=== PATIENT | female | born 1950 | race Two or more races ===

== ENCOUNTER 2024-06-13 22:22 | Inpatient (IN) | payer OTHER ==
[~2024-06-13] VITALS: Ht 152.4 cm; Wt 40.8 kg
--- NOTE | 2024-06-13 22:33 | NUR ---
SE RECIBE PACIENTE DE VILLAVICENCIO GURINDER LA MISMA ES TRANSFERIDA POR ANEMIA, AL MOMENTO DE TRIAGE PACIENTE ALERTA Y ORIENTADA EN TIEMPO, LUGAR Y PERSONA. PACIENTE REFIERE NO TENER DOLOR AL MOMENTO, SE OBSERVA PACIENTE PREVIAMENTE CANALIZADA DEL [facility] CON ANGIO #20, EL CUAL SE ENCUENTRA PATENTE, LAURA DE EDEMA Y ERITEMA, SE OBESRVA RECIBIENDO ZITHROMAX 500MG IV. SE MONITOREAN S/V Y SE UBICA PACIENTE.
[2024-06-13] MEDS ORDERED: FUROsemide 20 MG/2 ML VIAL IV SCH (23:08)
[2024-06-13] MEDS ORDERED: ACETAMINOPHEN 325 MG TABLET PO PRN (23:15)
[2024-06-14 04:29] LABS: MEAN CELL VOLUME 106.4 fL (80.00-100.00); MEAN CORPUSCULAR HGB CONC 34.6 g/dl (32.0-36.0); PLATELET COUNT 437 K/uL (150-450); RED BLOOD COUNT 1.81 M/uL (4.00-6.00); RED CELL DISTRIBUTION WIDTH 23.7 % (11.5-14.5)
[2024-06-14 04:34] LABS: BILIRUBIN TOTAL 0.8 mg/dL (0.3-1.2); CALCIUM 8.4 mg/dL (8.5-10.1); CREATININE SERUM 0.67 mg/dL (0.55-1.02); GFR 85.57; GLOBULINA 4.3 G/DL (2.4-3.5); TOTAL PROTEIN 6.3 gm/dL (6.4-8.2)
[2024-06-14 04:38] LABS: HEMOGLOBIN 6.7 g/dL (12.0-15.00)
[2024-06-14 04:39] LABS: HEMATOCRIT 19.2 % (36.0-45.00)
[2024-06-14 04:43] LABS: INR 1.15; PARTIAL THROMBOPLASTIN TIME 28.3 SECONDS (22.0-34.0); PROTHROMBIN TIME 12.4 SECONDS (9.0-11.5)
[2024-06-14 05:47] LABS: POTASSIUM 2.97 mEq/L (3.5-5.1)
[2024-06-14 06:24] LABS: PH,URINE 6.5 (5.0-8.0); URINE APPEARANCE Clear; URINE BILIRRUBIN Negative (NEGATIVE); URINE BLOOD Negative; URINE COLOR Yellow; URINE GLUCOSE Negative (NEGATIVE); URINE KETONE Negative (NEGATIVE); URINE LEUKOCYTE Negative; URINE NITRATE Negative; URINE PROTEIN Negative (NEGATIVE); URINE UROBILINOGEN 0.2 E.U./dl
[2024-06-14 06:30] LABS: URINE EPITHELIAL CELLS 4.1 uL (0.0-38.8); URINE RBC 3.9 uL (0.0-20.8); URINE WBC 3.7 uL (0.0-23.2)
[2024-06-14] MEDS ORDERED: ACETAMINOPHEN 500 MG GEL..CAP PO PRN (07:00)
[2024-06-14 08:34] VITALS: BP 114/63; O2SAT 97
[2024-06-14 09:45] LABS: RH POSITIVE
[2024-06-14] MEDS ORDERED: CYANOCOBALAMIN (VITAMIN B-12) 1,000 MCG/ML VIAL SUBCUTANEO SCH (10:06)
[2024-06-14 10:39] LABS: FOLIC ACID 16.23 ng/ml (4.78-20)
[2024-06-14] MEDS ORDERED: SOD FERRIC GLUC COMPLX/SUCROSE 62.5 MG in 0.9 % SODIUM CHLORIDE 50 ML IV SCH (11:00)
[2024-06-14] MEDS ORDERED: FOLIC ACID 1 MG TABLET PO SCH (11:00)
[2024-06-14] MEDS ORDERED: MAGNESIUM SULFATE IN WATER 50 ML IV NR (11:00)
[2024-06-14] MEDS ORDERED: POTASSIUM CHLORIDE IN WATER 40 MEQ/100 ML PIGGYBAG IV SCH (13:00)
[2024-06-14 17:00] VITALS: BP 169/74; O2SAT 100
[2024-06-14 21:40] VITALS: BP 95/57; O2SAT 100
[2024-06-15 00:28] VITALS: BP 98/60; O2SAT 96
[2024-06-15 03:07] LABS: T4 FREE 1.34 NG/ML (0.76-1.46); TSH 0.54 uIU/mL (0.358-3.74)
[2024-06-15 03:25] LABS: FERRITIN 1318.7 NG/ML (8-252)
[2024-06-15 09:52] VITALS: BP 120/70; O2SAT 98
[2024-06-15] MEDS ORDERED: RIVAROXABAN 10 MG TAB PO SCH (10:06)
[2024-06-15] MEDS ORDERED: BUDESONIDE 0.5 MG/2 ML AMPUL.NEB IH NR (10:30)
[2024-06-15 10:56] LABS: ABG PO2 83.2 mmHg (80-100); ABG pCO2 31.3 mmHg (35-45); BASE EXCESS 3.6 mmol/l; BICARBONATE 25.6 mmol/l (23-25); SaO2 97.5 %; Tco2 26.5 mmol/l; allen test SATISFACTORY; o2 21 %; puncture site RADIAL LEFT
[2024-06-15] MEDS ORDERED: LEVALBUTEROL HCL 1.25 MG/3 ML SOLUTION IH SCH (12:00)
[2024-06-15] MEDS ORDERED: GUAIFENESIN 200 MG/10 ML BLIST.PACK PO SCH (12:00)
[2024-06-15] MEDS ORDERED: AZITHROMYCIN 500 MG in 0.9 % SODIUM CHLORIDE 250 ML IV SCH (12:00)
[2024-06-15] MEDS ORDERED: PANTOPRAZOLE SODIUM 40 MG/VIAL VIAL IV PUSH SCH (12:00)
[2024-06-15 13:28] LABS: ob NEGATIVE (NEGATIVE)
[2024-06-15 15:59] LABS: HEMATOCRIT 29.6 % (36.0-45.00); HEMOGLOBIN 10.1 g/dL (12.0-15.00); MEAN CELL VOLUME 100.2 fL (80.00-100.00); MEAN CORPUSCULAR HEMOGLOBIN 34.3 pg (27.00-32.0); MEAN CORPUSCULAR HGB CONC 34.3 g/dl (32.0-36.0); PLATELET COUNT 465 K/uL (150-450); RED BLOOD COUNT 2.95 M/uL (4.00-6.00); RED CELL DISTRIBUTION WIDTH 23.4 % (11.5-14.5)
[2024-06-15 16:20] LABS: ALB/GLOB RATIO 0.5 (1.1-1.79); ALBUMIN 2.5 gm/dL (3.4-5.0); GLOBULINA 4.7 G/DL (2.4-3.5); TOTAL PROTEIN 7.2 gm/dL (6.4-8.2)
[2024-06-15 16:22] LABS: ALBUMIN 2.4 gm/dL (3.4-5.0); BILIRUBIN TOTAL 1.07 mg/dL (0.3-1.2); CALCIUM 8.6 mg/dL (8.5-10.1); CREATININE SERUM 0.65 mg/dL (0.55-1.02); GFR 88.62; GLOBULINA 4.8 G/DL (2.4-3.5); POTASSIUM 3.34 mEq/L (3.5-5.1); TOTAL PROTEIN 7.2 gm/dL (6.4-8.2)
[2024-06-15] MEDS ORDERED: CEFTRIAXONE SODIUM 1,000 MG in DEXTROSE 5 % IN WATER 100 ML IV SCH (17:00)
[2024-06-15 19:17] VITALS: BP 148/81; O2SAT 100
[2024-06-15] MEDS ORDERED: TUBERCULIN,PURIF.PROT.DERIV. 10 SKIN.TEST SKIN.TEST ID ONE (19:30)
[2024-06-15] MEDS ORDERED: BUDESONIDE 0.5 MG/2 ML AMPUL.NEB IH SCH (21:00)
[2024-06-16 01:17] VITALS: BP 115/69; O2SAT 98
[2024-06-16 09:45] VITALS: BP 154/95; O2SAT 98
[2024-06-16 11:57] LABS: HEMATOCRIT 30.2 % (36.0-45.00); HEMOGLOBIN 10.7 g/dL (12.0-15.00); MEAN CORPUSCULAR HEMOGLOBIN 34.5 pg (27.00-32.0); MEAN CORPUSCULAR HGB CONC 35.6 g/dl (32.0-36.0); PLATELET COUNT 351 K/uL (150-450); RED BLOOD COUNT 3.11 M/uL (4.00-6.00); RED CELL DISTRIBUTION WIDTH 22.1 % (11.5-14.5)
[2024-06-16 17:52] VITALS: BP 146/77; O2SAT 96
[2024-06-17 02:44] VITALS: BP 108/67
[2024-06-17 08:47] VITALS: BP 147/52; O2SAT 99
[2024-06-17 18:22] VITALS: BP 153/87
[2024-06-18 02:54] VITALS: BP 116/71; O2SAT 97
[2024-06-18] MEDS ORDERED: LINEZOLID IN DEXTROSE 5% 600 MG/300 ML PIGGYBAG IV NR (10:00)
[2024-06-18] MEDS ORDERED: MEROPENEM 500 MG/VIAL VIAL IV NR (10:00)
[2024-06-18 10:36] VITALS: BP 105/55; O2SAT 97
[2024-06-18] MEDS ORDERED: MEROPENEM 500 MG/VIAL VIAL IV SCH (17:00)
[2024-06-18] MEDS ORDERED: IRON FUM,PS/FOLIC ACID/VITC/B3 1 CAP CAPSULE PO SCH (17:30)
[2024-06-18 17:46] VITALS: BP 117/70
[2024-06-18] MEDS ORDERED: LINEZOLID IN DEXTROSE 5% 300 ML IV SCH (21:00)
[2024-06-19 02:20] VITALS: BP 125/76; O2SAT 100
[2024-06-19 09:28] VITALS: BP 140/80; O2SAT 96
[2024-06-19 11:33] LABS: ALBUMIN 1.8 gm/dL (3.4-5.0); BILIRUBIN TOTAL 0.74 mg/dL (0.3-1.2); CALCIUM 8.2 mg/dL (8.5-10.1); CREATININE SERUM 0.44 mg/dL (0.55-1.02); GFR 139.03; GLOBULINA 3.9 G/DL (2.4-3.5); POTASSIUM 3.67 mEq/L (3.5-5.1); TOTAL PROTEIN 5.7 gm/dL (6.4-8.2)
[2024-06-19 14:02] LABS: HEMATOCRIT 26.5 % (36.0-45.00); HEMOGLOBIN 9.3 g/dL (12.0-15.00); MEAN CELL VOLUME 98.6 fL (80.00-100.00); MEAN CORPUSCULAR HEMOGLOBIN 34.5 pg (27.00-32.0); PLATELET COUNT 299 K/uL (150-450); RED BLOOD COUNT 2.69 M/uL (4.00-6.00); RED CELL DISTRIBUTION WIDTH 21.6 % (11.5-14.5)
[2024-06-19 18:29] VITALS: BP 119/61
[2024-06-20 01:25] VITALS: BP 92/69; O2SAT 99
[2024-06-20] MEDS ORDERED: PREDNISONE 5 MG TABLET PO SCH (09:28)
[2024-06-20 10:13] VITALS: BP 140/73; O2SAT 100
[2024-06-20] MEDS ORDERED: BUDESONIDE0.5 MG/2 M IH (11:43)
[2024-06-20] MEDS ORDERED: ATROVENT HFA12.9 GM IH (11:44)
[2024-06-20] MEDS ORDERED: APETIGEN P12.5 MG/15 PO (11:59)
[2024-06-20] MEDS ORDERED: CEFDINIR300 MG PO (12:00)
[2024-06-20] MEDS ORDERED: PEPCID AC20 MG PO (12:00)
[2024-06-20] MEDS ORDERED: RAYOS5 MG PO (12:03)
[2024-06-20 20:04] LABS: afb smear Positive (.); afb spe proc Concentration (.)
[2024-06-21 18:10] LABS: quan ag 0.67 IU/mL (.); quan mito > 10.00 IU/mL (.); quant nil 0.09 IU/mL (.)
[2024-06-22 14:06] LABS: a:g ratio 0.6 (0.7-1.7); alpha 1 g 0.5 g/dL (0.0-0.4); beta g 2.2 g/dL (0.7-1.3); gamma g 0.8 g/dL (0.4-1.8); globulin t 4.5 g/dL (2.2-3.9); prot total 7.2 g/dL (6.0-8.5)
== END 2024-06-20 12:20 | disposition home or self-care (01) | DRG 196 ==
LOC: ER 22:22 → SEC-K 23:11 → MEDJ 06-14 19:57
PROVIDERS: General Practice; ADMIT Internal Medicine; ATTEND Internal Medicine
PROC: 30233N1 Transfusion of Nonautologous Red Blood Cells into Peripheral Vein, Percutaneous Approach (ICD-10-PCS; 2024-06-14)
PROC: BW24ZZZ Computerized Tomography (CT Scan) of Chest and Abdomen (ICD-10-PCS; 2024-06-15)
PROC: BW21YZZ Computerized Tomography (CT Scan) of Abdomen and Pelvis using Other Contrast (ICD-10-PCS; principal; 2024-06-16)
DX: D86.0 Sarcoidosis of lung (principal); J18.9 Pneumonia, unspecified organism; A31.0 Pulmonary mycobacterial infection; J90 Pleural effusion, not elsewhere classified; D64.9 Anemia, unspecified; I10 Essential (primary) hypertension; K29.60 Other gastritis without bleeding